=== PATIENT | female | born 1995 | race Caucasian/White ===

== ENCOUNTER 2019-06-13 00:40 | Inpatient (IN) | payer BC ==
[~2019-06-13] VITALS: Ht 172.7 cm; Wt 81.6 kg
[2019-06-13] MEDS ORDERED: OXYTOCIN/0.9 % SODIUM CHLORIDE 1,000 ML IV SCH ×2 (00:58→13:11)
[2019-06-13] MEDS ORDERED: NALBUPHINE HCL 10 MG/ML AMP IM PRN (01:00)
[2019-06-13] MEDS ORDERED: NALBUPHINE HCL 10 MG/ML AMP IVP PRN (01:00)
[2019-06-13] MEDS ORDERED: TERBUTALINE SULFATE 1 MG/ML VIAL SUBCUT ONE (01:00)
[2019-06-13 01:43] LABS: BASOPHILS % (AUTO) 0.3 % (0.0-2.0); EOSINOPHILS # (AUTO) 0.1 K/uL (0.0-0.4); EOSINOPHILS % (AUTO) 0.5 % (0.0-4.0); HEMOGLOBIN 11.4 g/dL (12.0-16.0); LYMPHOCYTES # (AUTO) 1.7 K/uL (1.0-5.5); MEAN CORPUSCULAR HEMOGLOBIN 33 pg (27-31); MEAN CORPUSCULAR HGB CONC 35 % (32-36); MEAN CORPUSCULAR VOLUME 96 fL (79.0-98.0); MONOCYTES # (AUTO) 0.8 K/uL (0.0-1.0); MONOCYTES % (AUTO) 7.4 % (1.7-9.3); NEUTROPHILS # (AUTO) 8.2 K/uL (1.8-7.7); NEUTROPHILS % (AUTO) 75.8 % (40.0-70.0); PLATELET COUNT (AUTO) 182 K/uL (130-430); RED BLOOD CELL COUNT(AUTO) 3.46 MIL/uL (4.2-6.2); RED CELL DISTRIBUTION WIDTH 13.8 % (9.0-15.0); WHITE BLOOD COUNT (AUTO) 10.8 K/uL (4.8-10.8)
[2019-06-13] MEDS: LR 1,000 ML IV SCH ×3 (02:00→06:45)
[2019-06-13] MEDS ORDERED: fentaNYL CITRATE/PF 100 MCG/2 ML AMP ONE (02:33)
[2019-06-13] MEDS ORDERED: ROPIVACAINE HCL/PF 0.2% 200 ML ONE (02:33)
[2019-06-13 04:09] VITALS: BP_SYST 113
[2019-06-13] MEDS ORDERED: OXYTOCIN/0.9 % SODIUM CHLORIDE 1,000 ML IV ONE (13:11)
[2019-06-13] MEDS ORDERED: WITCH HAZEL LEAF 1 MED.PAD MED.PAD TP PRN (13:15)
[2019-06-13] MEDS ORDERED: ANUSOL 1 EA SUPP.RECT (PREPARATION H) RC PRN (13:15)
[2019-06-13] MEDS ORDERED: DERMOPLAST SPRAY TP PRN (13:15)
[2019-06-13] MEDS ORDERED: RHO(D) IMMUNE GLOBULIN/MALTOSE 1500 UNITS/1.3 ML (WINHRO) IM PRN (13:15)
[2019-06-13] MEDS ORDERED: HYDROCORTISONE 0.5%, 28.35 GM TOPICAL CREAM TP PRN (13:15)
[2019-06-13] MEDS ORDERED: LANOLIN 7 GM OINT. TP PRN (13:15)
[2019-06-13] MEDS ORDERED: DIPH-TET-PERTUS Vaccine 0.5 ML VIAL (ADACEL) I.M. PRN (13:15)
[2019-06-13] MEDS ORDERED: SENNOSIDES/DOCUSATE SODIUM 1 TAB TABLET(SENOKOT-S) PO PRN (13:15)
[2019-06-13] MEDS ORDERED: OXYCODONE/ACETAMINOPHEN 5-325 TABLET PO PRN ×2 (13:15)
[2019-06-13] MEDS ORDERED: DOCUSATE SODIUM 100 MG CAPSULE PO PRN (13:15)
[2019-06-13] MEDS ORDERED: MEASLES,MUMPS&RUBELLA VACC/PF 12500 UNIT/0.5 ML VIAL SUBQ PRN (13:15)
[2019-06-13] MEDS ORDERED: METHYLERGONOVINE MALEATE 0.2 MG TABLET PO PRN (13:15)
[2019-06-13] MEDS: IBUPROFEN 600 MG TABLET PO SCH (17:56)
[2019-06-13] MEDS ORDERED: LIDOCAINE PF 1% 30ML(POUR BTL) INJ ONE (18:46)
[2019-06-13] MEDS ORDERED: LIGHT MINERAL OIL 10 ML VIAL MC ONE (18:50)
[2019-06-13] MEDS ORDERED: LR 500 ML IV ONE (19:49)
[2019-06-13] MEDS ORDERED: FENT2mCg/mL-ROPIVA0.2%/NS EPID 200 ML EP SCH (20:00)
[2019-06-13] MEDS ORDERED: TEMAZEPAM 15 MG CAPSULE PO PRN (21:00)
[2019-06-14] MEDS: IBUPROFEN 600 MG TABLET PO SCH ×3 (05:46→12:43)
[2019-06-14 07:08] LABS: BASOPHILS % (AUTO) 0.1 % (0.0-2.0); EOSINOPHILS # (AUTO) 0.1 K/uL (0.0-0.4); EOSINOPHILS % (AUTO) 0.6 % (0.0-4.0); HEMATOCRIT 23.1 % (36-48); HEMOGLOBIN 7.7 g/dL (12.0-16.0); LYMPHOCYTES # (AUTO) 1.7 K/uL (1.0-5.5); LYMPHOCYTES % (AUTO) 13.6 % (20.5-51.5); MEAN CORPUSCULAR HEMOGLOBIN 32 pg (27-31); MEAN CORPUSCULAR HGB CONC 33 % (32-36); MEAN CORPUSCULAR VOLUME 97 fL (79.0-98.0); MONOCYTES # (AUTO) 0.8 K/uL (0.0-1.0); MONOCYTES % (AUTO) 6.7 % (1.7-9.3); NEUTROPHILS # (AUTO) 9.6 K/uL (1.8-7.7); PLATELET COUNT (AUTO) 141 K/uL (130-430); RED BLOOD CELL COUNT(AUTO) 2.37 MIL/uL (4.2-6.2); WHITE BLOOD COUNT (AUTO) 12.2 K/uL (4.8-10.8)
== END 2019-06-14 16:15 | disposition home or self-care (01) | DRG 806 ==
LOC: SPU 00:40 → OBSVTOIN 00:40
PROVIDERS: ADMIT Specialist; ATTEND Specialist
PROC: 3E0R3BZ Introduction of Anesthetic Agent into Spinal Canal, Percutaneous Approach (ICD-10-PCS; principal; 2019-06-13)
PROC: 10E0XZZ Delivery of Products of Conception, External Approach (ICD-10-PCS; 2019-06-13)
PROC: 00HU33Z Insertion of Infusion Device into Spinal Canal, Percutaneous Approach (ICD-10-PCS; 2019-06-13)
PROC: 0W8NXZZ Division of Female Perineum, External Approach (ICD-10-PCS; 2019-06-13)
DX: O64.0XX0 Obstructed labor due to incomplete rotation of fetal head, not applicable or unspecified (principal); D62 Acute posthemorrhagic anemia; Z37.0 Single live birth; Z3A.36 36 weeks gestation of pregnancy
CPT/HCPCS: 36415; 81002-TC; 85025; 86592; 86886; 86900; 86901; J2001; J2590; J3010; J7120

== ENCOUNTER 2022-11-25 12:16 | Inpatient (IN) | payer BC ==
[~2022-11-25] VITALS: Ht 172.7 cm; Wt 83.5 kg
[2022-11-25] MEDS ORDERED: NALBUPHINE HCL 10 MG/ML AMP IVP PRN (12:45)
[2022-11-25] MEDS ORDERED: LR 1,000 ML IV ONE (12:45)
[2022-11-25] MEDS ORDERED: TERBUTALINE SULFATE 1 MG/ML VIAL SUBCUT ONE (12:45)
[2022-11-25] MEDS ORDERED: LR 1,000 ML IV SCH (12:45)
[2022-11-25] MEDS ORDERED: OXYTOCIN/0.9 % SODIUM CHLORIDE 1,000 ML IV SCH (12:45)
[2022-11-25 13:07] LABS: BASOPHILS % (AUTO) 0.4 % (0.0-2.0); EOSINOPHILS % (AUTO) 0.5 % (0.0-4.0); HEMATOCRIT 32.3 % (36-48); HEMOGLOBIN 11.3 g/dL (12.0-16.0); LYMPHOCYTES # (AUTO) 1.3 K/uL (1.0-5.5); LYMPHOCYTES % (AUTO) 13.4 % (20.5-51.5); MEAN CORPUSCULAR HEMOGLOBIN 33 pg (27-31); MEAN CORPUSCULAR HGB CONC 35 % (32-36); MEAN CORPUSCULAR VOLUME 94 fL (79.0-98.0); MONOCYTES # (AUTO) 0.6 K/uL (0.0-1.0); MONOCYTES % (AUTO) 6.1 % (1.7-9.3); NEUTROPHILS # (AUTO) 7.7 K/uL (1.8-7.7); NEUTROPHILS % (AUTO) 79.6 % (40.0-70.0); PLATELET COUNT (AUTO) 177 K/uL (130-430); RED BLOOD CELL COUNT(AUTO) 3.43 MIL/uL (4.2-6.2); RED CELL DISTRIBUTION WIDTH 13.6 % (9.0-15.0); WHITE BLOOD COUNT (AUTO) 9.7 K/uL (4.8-10.8)
[2022-11-25 14:32] VITALS: BP_SYST 127
[2022-11-25] MEDS ORDERED: LIGHT MINERAL OIL 10 ML VIAL MC ONE (18:42)
[2022-11-25] MEDS ORDERED: LIDOCAINE PF 1% 30ML(POUR BTL) INJ ONE (18:43)
[2022-11-25] MEDS ORDERED: NALOXONE HCL 0.4 MG/ML AMP (NARCAN) ONE (18:43)
[2022-11-25] MEDS ORDERED: OXYTOCIN 10 UNIT/ML VIAL ONE (19:10)
[2022-11-25 20:00] VITALS: BP_SYST 119
[2022-11-25] MEDS ORDERED: TEMAZEPAM 15 MG CAPSULE PO PRN (21:00)
[2022-11-25] MEDS ORDERED: OXYTOCIN/0.9 % SODIUM CHLORIDE 1,000 ML IV ONE (23:45)
[2022-11-25] MEDS ORDERED: DERMOPLAST SPRAY TP PRN (23:45)
[2022-11-25] MEDS ORDERED: ANUSOL 1 EA SUPP.RECT (PREPARATION H) RC PRN (23:45)
[2022-11-25] MEDS ORDERED: WITCH HAZEL LEAF 1 MED.PAD MED.PAD TP PRN (23:45)
[2022-11-25] MEDS ORDERED: LANOLIN 7 GM OINT. TP PRN (23:45)
[2022-11-25] MEDS: IBUPROFEN 600 MG TABLET PO SCH (23:54)
[2022-11-26] MEDS ORDERED: HYDROcodone/ACETAMIN 5-325 MG TAB (NORCO/ VICODIN) PO PRN (00:15)
[2022-11-26] MEDS: OXYCODONE/ACETAMINOPHEN 5-325 TABLET PO PRN ×2 (00:34→23:40)
[2022-11-26] MEDS: OXYCODONE/ACETAMINOPHEN *10*mg/325 mg TABLET PO PRN ×2 (03:43→13:22)
[2022-11-26] MEDS: IBUPROFEN 600 MG TABLET PO SCH ×4 (05:39→23:40)
[2022-11-26 08:58] LABS: BASOPHILS % (AUTO) 0.2 % (0.0-2.0); EOSINOPHILS # (AUTO) 0.1 K/uL (0.0-0.4); EOSINOPHILS % (AUTO) 0.7 % (0.0-4.0); HEMOGLOBIN 9.8 g/dL (12.0-16.0); LYMPHOCYTES # (AUTO) 1.7 K/uL (1.0-5.5); MEAN CORPUSCULAR HEMOGLOBIN 33 pg (27-31); MEAN CORPUSCULAR HGB CONC 34 % (32-36); MEAN CORPUSCULAR VOLUME 96 fL (79.0-98.0); MONOCYTES # (AUTO) 0.9 K/uL (0.0-1.0); MONOCYTES % (AUTO) 7.7 % (1.7-9.3); NEUTROPHILS # (AUTO) 9.3 K/uL (1.8-7.7); NEUTROPHILS % (AUTO) 77.4 % (40.0-70.0); PLATELET COUNT (AUTO) 167 K/uL (130-430); RED BLOOD CELL COUNT(AUTO) 3.01 MIL/uL (4.2-6.2); RED CELL DISTRIBUTION WIDTH 13.7 % (9.0-15.0)
[2022-11-26] MEDS: DOCUSATE SODIUM 100 MG CAPSULE PO SCH (09:13)
[2022-11-26] MEDS ORDERED: SENNOSIDES/DOCUSATE SODIUM 1 TAB TABLET(SENOKOT-S) PO SCH (21:00)
[2022-11-27] MEDS: IBUPROFEN 600 MG TABLET PO SCH ×2 (06:11→11:59)
[2022-11-27] MEDS: DOCUSATE SODIUM 100 MG CAPSULE PO SCH (08:58)
== END 2022-11-27 14:10 | disposition home or self-care (01) | DRG 807 ==
LOC: SPU 12:16 → OBSVTOIN 12:30
PROVIDERS: ADMIT Specialist; ATTEND Specialist
PROC: 10E0XZZ Delivery of Products of Conception, External Approach (ICD-10-PCS; principal; 2022-11-25)
PROC: 0KQM0ZZ Repair Perineum Muscle, Open Approach (ICD-10-PCS; 2022-11-25)
PROC: 10907ZC Drainage of Amniotic Fluid, Therapeutic from Products of Conception, Via Natural or Artificial Opening (ICD-10-PCS; 2022-11-25)
DX: O70.1 Second degree perineal laceration during delivery (principal); Z37.0 Single live birth; Z3A.37 37 weeks gestation of pregnancy; Z20.822 Contact with and (suspected) exposure to COVID-19
CPT/HCPCS: 36415; 81002; 85025; 86592; 86886; 86900; 86901; G0378; J2001; J2300; J2310; J2590